=== PATIENT | male | born 1965 | race Caucasian/White ===

== ENCOUNTER → 2016-02-25 | Outpatient (REF) | payer OTHER | LOC: M LAB REF 16:25 | PROVIDERS: ATTEND Internal Medicine | DX: E78.2 Mixed hyperlipidemia (principal) ==

== ENCOUNTER → 2016-07-23 | Outpatient (REF) | payer OTHER | LOC: M LAB REF 12:52 | PROVIDERS: ATTEND Nurse Practitioner Family | DX: E78.2 Mixed hyperlipidemia (principal) ==

== ENCOUNTER → 2018-08-30 | Outpatient (CLI) | payer BC, OTHER ==
--- NOTE | 2018-09-04 18:11 | SLEEPCENT ---
DATE OF PROCEDURE: 08/30/2018 ORDERED BY: Dr. Peri Sullivan Nocturnal polysomnography was performed for re-titration of pressure therapy in this patient with obstructive sleep apnea syndrome. For testing, a [employer] Quattro Air full face mask of medium size was used, 8 cm of water pressure were applied to the circuit and the lights were extinguished. 8 hours and 53 minutes of data were reviewed. There were 454 minutes of sleep identified. Sleep latency was prolonged at 41 minutes. REM latency was prolonged at 120.5 minutes. Sleep architecture once established was good. There were three REM cycles. Overall sleep efficiency 86.1%. The patient's electrocardiogram showed a sinus rhythm with an average heart rate of 82 beats per minute. EEG showed normal waveforms for awake and sleep. Respiratory events were best palliated with continuous positive airway pressure (CPAP) at a pressure of +9. Significant limb activity was noted over the course of the study. Limb movement arousal index was 11.1. IMPRESSION: 1. Obstructive sleep apnea syndrome (G47.33). 2. Periodic limb movement disorder (G47.61). Limb movement arousal index 11.1. RECOMMENDATIONS: Nightly use of pressure therapy 9 cm of water is sufficient to address the patient's obstructive respiratory events. Interventions to reduce the frequency of arousal from limb activity may also be helpful.
== END ==
LOC: M SLEEP 19:21
PROVIDERS: ATTEND Nurse Practitioner Adult Health
DX: G47.33 Obstructive sleep apnea (adult) (pediatric) (principal)

== ENCOUNTER → 2018-09-06 | Outpatient (REF) | payer OTHER ==
[2018-09-08 08:07] LABS: LDL DIRECT 42 mg/dL (0-99)
== END ==
LOC: M LAB REF 16:56
PROVIDERS: ATTEND Internal Medicine
DX: E78.2 Mixed hyperlipidemia (principal)

== ENCOUNTER → 2021-12-21 | Outpatient (REF) | payer OTHER | LOC: M LAB REF 10:16 | PROVIDERS: ATTEND Internal Medicine | DX: G60.9 Hereditary and idiopathic neuropathy, unspecified (principal) ==

== ENCOUNTER → 2023-04-20 | Outpatient (REF) | payer OTHER ==
[2023-04-20 17:54] LABS: FERRITIN 126.3 NG/ML (10.5-307.3); PERCENT SATURATION 19.6 % (19.7-50.0)
== END ==
LOC: M LAB REF 16:26
PROVIDERS: ATTEND Internal Medicine
DX: D64.9 Anemia, unspecified (principal)

== ENCOUNTER → 2023-06-09 | Outpatient (CLI) | payer BC | LOC: M RAD 11:12 | PROVIDERS: ATTEND Internal Medicine | DX: K81.9 Cholecystitis, unspecified (principal) | CPT/HCPCS: 78226; A9537 ==